=== PATIENT | female | born 1965 | race Caucasian/White ===

== ENCOUNTER 2023-03-09 02:01 | Inpatient (IN) | payer MEDICAID ==
[~2023-03-09] VITALS: Ht 165.1 cm; Wt 119.6 kg
[2023-03-09 02:40] LABS: Basophils # (auto) 0.1 10 ^3/uL (0-0.2); Basophils % (auto) 1.2 % (0.0-2.0); Eosinophils # (auto) 0.3 10 ^3/uL (0-0.8); Eosinophils % (auto) 2.9 % (0.0-7.0); Hematocrit 40.4 % (36.0-46.0); Hemoglobin 13.6 g/dL (12.2-16.2); Lymphocytes # (auto) 1.9 10 ^3/uL (0.4-5.4); Lymphocytes % (auto) 19.4 % (10.0-50.0); Mean Corpuscular Hemoglobin 30.5 pg (28.0-32.0); Mean Corpuscular Hgb Conc. 33.7 g/dL (32.0-36.0); Mean Corpuscular Volume 90.3 fL (80.0-100.0); Monocytes # (auto) 0.9 10 ^3/uL (0-1.3); Monocytes % (auto) 9.8 % (0.0-12.0); Neutrophils # (auto) 6.5 10 ^3/uL (1.6-8.6); Neutrophils % (auto) 66.7 % (37.0-80.0); Nucleated Red Blood Cells % 0.1 %; Red Blood Cells 4.47 10^6/uL (4.0-5.20); Red Cell Distribution Width 13.5 % (11.8-14.3); White Blood Cell 9.7 10^3/uL (4.4-10.8)
[2023-03-09 03:28] LABS: BUN/Creatinine Ratio 17.8 (10.0-20.0); Bilirubin, Total 0.3 mg/dL (0.2-1.0); Calcium 9.1 mg/dL (8.5-10.1); Potassium 3.2 mmol/L (3.5-5.1)
[2023-03-09] MEDS ORDERED: LACTATED RINGER'S 2,000 ML IV ONE (04:30)
[2023-03-09] MEDS ORDERED: InsuLIN REG 1unit/0.01ml Soln (100units/ml) IV ONE (04:30)
[2023-03-09] MEDS ORDERED: POTASSIUM EFFERVESENT TAB 25 MEQ PO ONE (04:30)
[2023-03-09 04:50] LABS: Magnesium 1.7 mg/dL (1.6-2.6)
[2023-03-09] MEDS ORDERED: LACTATED RINGER'S 1,000 ML IV ONE (05:00)
[2023-03-09] MEDS ORDERED: SODIUM CHLORIDE 0.9% 1,000 ML IV ONE (06:00)
[2023-03-09 06:38] LABS: Urine Bacteria MANY /hpf (None Seen); Urine Blood 2+ /uL (Negative); Urine Specific Gravity 1.023 (1.001-1.035); Urine WBC 2051 /hpf (0 - 5)
[2023-03-09] MEDS ORDERED: MORPHINE SULFATE INJ 2 MG/ml SYRG IV PRN (08:30)
[2023-03-09] MEDS ORDERED: DOCUSATE SOD 100 MG CAP PO PRN (08:30)
[2023-03-09] MEDS ORDERED: ONDANSETRON HCL 4 MG/2 ML VIAL IV PRN (08:30)
[2023-03-09] MEDS ORDERED: NITROGLYCERIN 0.4 MG SL TAB SL PRN (08:30)
[2023-03-09] MEDS ORDERED: TEMAZEPAM 15 MG CAP PO PRN (08:30)
[2023-03-09] MEDS ORDERED: DEXTROSE (50%) 50ML SYRG IV PRN (08:30)
[2023-03-09] MEDS ORDERED: ACETAMINOPHEN 325 MG TAB PO PRN (08:30)
[2023-03-09] MEDS: PIPERACILLIN-TAZOB 3.375GM 100 ML IV SCH ×3 (09:39→22:21)
[2023-03-09] MEDS: MULTIPLE VITAMIN TAB PO SCH (09:40)
[2023-03-09] MEDS: ENOXAPARIN SOD 40 MG/0.4 ML SYRINGE SC SCH (09:40)
[2023-03-09] MEDS: ASCORBIC ACID 500 MG TAB PO SCH ×2 (09:40→22:09)
[2023-03-09] MEDS: FAMOTIDINE 20 MG TAB PO SCH (09:40)
[2023-03-09] MEDS: ZINC SULFATE 220mg CAP or TAB PO SCH (09:40)
[2023-03-09] MEDS: ACCU-CHEK COMFORT CURVE STRIP VI SCH ×3 (11:22→22:09)
[2023-03-09] MEDS: InsuLIN REG 1unit/0.01ml Soln (100units/ml) SC SCH ×3 (11:29→22:12)
[2023-03-10] MEDS: PIPERACILLIN-TAZOB 3.375GM 100 ML IV SCH ×3 (05:33→22:54)
[2023-03-10 06:23] LABS: Potassium 3.5 mmol/L (3.5-5.1)
[2023-03-10 06:26] LABS: Basophils # (auto) 0.1 10 ^3/uL (0-0.2); Eosinophils # (auto) 0.4 10 ^3/uL (0-0.8); Eosinophils % (auto) 4.4 % (0.0-7.0); Hematocrit 39.3 % (36.0-46.0); Hemoglobin 13.1 g/dL (12.2-16.2); Lymphocytes # (auto) 2.5 10 ^3/uL (0.4-5.4); Mean Corpuscular Hemoglobin 29.8 pg (28.0-32.0); Mean Corpuscular Hgb Conc. 33.4 g/dL (32.0-36.0); Mean Corpuscular Volume 89.1 fL (80.0-100.0); Monocytes # (auto) 0.8 10 ^3/uL (0-1.3); Monocytes % (auto) 9.4 % (0.0-12.0); Neutrophils # (auto) 4.6 10 ^3/uL (1.6-8.6); Neutrophils % (auto) 55.2 % (37.0-80.0); Nucleated Red Blood Cells % 0.1 %; Red Blood Cells 4.41 10^6/uL (4.0-5.20); Red Cell Distribution Width 13.4 % (11.8-14.3); White Blood Cell 8.3 10^3/uL (4.4-10.8)
[2023-03-10 06:34] LABS: Albumin 2.4 g/dL (3.4-5.0); BUN/Creatinine Ratio 16.8 (10.0-20.0); Bilirubin, Total 0.2 mg/dL (0.2-1.0); Calcium 8.1 mg/dL (8.5-10.1)
[2023-03-10] MEDS: ACCU-CHEK COMFORT CURVE STRIP VI SCH ×4 (06:37→22:50)
[2023-03-10] MEDS: InsuLIN REG 1unit/0.01ml Soln (100units/ml) SC SCH ×4 (06:42→22:00)
[2023-03-10] MEDS: ENOXAPARIN SOD 40 MG/0.4 ML SYRINGE SC SCH (10:00)
[2023-03-10] MEDS: MULTIPLE VITAMIN TAB PO SCH (10:17)
[2023-03-10] MEDS: FAMOTIDINE 20 MG TAB PO SCH (10:17)
[2023-03-10] MEDS: ASCORBIC ACID 500 MG TAB PO SCH ×2 (10:18→22:54)
[2023-03-10] MEDS: ZINC SULFATE 220mg CAP or TAB PO SCH (10:18)
[2023-03-10] MEDS: INSULIN LANTUS (GLARGINE) 1 /0.01ml (100units/ml) SC SCH ×2 (11:14→22:00)
[2023-03-10] MEDS: HYDROcodone-ACET 5/325MG TAB PO PRN ×2 (13:16→20:48)
[2023-03-10] MEDS: metFORMIN HYDROCHLORIDE 500 MG TAB PO SCH (18:25)
[2023-03-11] MEDS: InsuLIN REG 1unit/0.01ml Soln (100units/ml) SC SCH ×4 (06:42→21:29)
[2023-03-11] MEDS: INSULIN LANTUS (GLARGINE) 1 /0.01ml (100units/ml) SC SCH ×2 (06:46→21:30)
[2023-03-11] MEDS: ACCU-CHEK COMFORT CURVE STRIP VI SCH ×4 (06:46→21:19)
[2023-03-11] MEDS: PIPERACILLIN-TAZOB 3.375GM 100 ML IV SCH ×2 (06:49→17:23)
[2023-03-11 09:00] VITALS: BP 111/51
[2023-03-11] MEDS: MULTIPLE VITAMIN TAB PO SCH (09:08)
[2023-03-11] MEDS: ASCORBIC ACID 500 MG TAB PO SCH ×2 (09:08→21:19)
[2023-03-11] MEDS: ENOXAPARIN SOD 40 MG/0.4 ML SYRINGE SC SCH (09:08)
[2023-03-11] MEDS: metFORMIN HYDROCHLORIDE 500 MG TAB PO SCH ×2 (09:09→17:25)
[2023-03-11] MEDS: FAMOTIDINE 20 MG TAB PO SCH (09:09)
[2023-03-11] MEDS: ZINC SULFATE 220mg CAP or TAB PO SCH (09:09)
[2023-03-11 12:34] LABS: Albumin 2.3 g/dL (3.4-5.0); BUN/Creatinine Ratio 13.9 (10.0-20.0); Potassium 3.6 mmol/L (3.5-5.1)
[2023-03-11 12:42] LABS: Bilirubin, Total 0.2 mg/dL (0.2-1.0); Total Protein 6.6 g/dL (6.4-8.2)
[2023-03-11 17:00] VITALS: BP 124/60
[2023-03-11] MEDS: glipiZIDE 5 MG TAB PO SCH (17:26)
[2023-03-11] MEDS: HYDROcodone-ACET 5/325MG TAB PO PRN ×2 (17:30→22:04)
[2023-03-11 20:00] VITALS: BP 148/83
[2023-03-12 00:11] VITALS: BP 148/83
[2023-03-12] MEDS: PIPERACILLIN-TAZOB 3.375GM 100 ML IV SCH ×3 (00:36→17:18)
[2023-03-12] MEDS: ACCU-CHEK COMFORT CURVE STRIP VI SCH ×4 (05:59→21:19)
[2023-03-12] MEDS: glipiZIDE 5 MG TAB PO SCH ×2 (06:00→17:19)
[2023-03-12] MEDS: INSULIN LANTUS (GLARGINE) 1 /0.01ml (100units/ml) SC SCH ×2 (06:03→21:19)
[2023-03-12] MEDS: InsuLIN REG 1unit/0.01ml Soln (100units/ml) SC SCH ×4 (06:03→21:18)
[2023-03-12 09:00] VITALS: BP 125/75
[2023-03-12] MEDS: metFORMIN HYDROCHLORIDE 500 MG TAB PO SCH ×2 (09:04→17:18)
[2023-03-12] MEDS: ZINC SULFATE 220mg CAP or TAB PO SCH (09:05)
[2023-03-12] MEDS: MULTIPLE VITAMIN TAB PO SCH (09:05)
[2023-03-12] MEDS: ENOXAPARIN SOD 40 MG/0.4 ML SYRINGE SC SCH (09:05)
[2023-03-12] MEDS: ASCORBIC ACID 500 MG TAB PO SCH ×2 (09:05→21:15)
[2023-03-12] MEDS: FAMOTIDINE 20 MG TAB PO SCH (09:05)
[2023-03-12] MEDS ORDERED: GLIP5TAB12 PO (12:19)
[2023-03-12] MEDS ORDERED: METF-929 PO (12:19)
[2023-03-12] MEDS ORDERED: BLOO1KIT60 XX (12:19)
[2023-03-12] MEDS ORDERED: LANC-347 XX (12:19)
[2023-03-12] MEDS ORDERED: INSU0.5M41 XX (12:19)
[2023-03-12] MEDS ORDERED: INSLANTI SC (12:19)
[2023-03-12] MEDS: HYDROcodone-ACET 5/325MG TAB PO PRN ×2 (14:56→20:23)
[2023-03-12] MEDS: FUROSEMIDE 40 MG/4 ML VIAL IV SCH (15:02)
[2023-03-12 16:30] VITALS: BP 133/80
[2023-03-12 22:00] VITALS: BP 124/73
[2023-03-13] MEDS: PIPERACILLIN-TAZOB 3.375GM 100 ML IV SCH ×3 (00:40→17:12)
[2023-03-13 05:00] VITALS: BP 105/54
[2023-03-13] MEDS: glipiZIDE 5 MG TAB PO SCH ×2 (06:22→17:16)
[2023-03-13 06:48] LABS: Basophils # (auto) 0 10 ^3/uL (0-0.2); Basophils % (auto) 0.6 % (0.0-2.0); Eosinophils # (auto) 0.3 10 ^3/uL (0-0.8); Eosinophils % (auto) 4.1 % (0.0-7.0); Hematocrit 39.5 % (36.0-46.0); Lymphocytes # (auto) 2.9 10 ^3/uL (0.4-5.4); Lymphocytes % (auto) 37.6 % (10.0-50.0); Mean Corpuscular Hemoglobin 29.5 pg (28.0-32.0); Mean Corpuscular Volume 89.5 fL (80.0-100.0); Monocytes # (auto) 0.7 10 ^3/uL (0-1.3); Monocytes % (auto) 8.9 % (0.0-12.0); Neutrophils # (auto) 3.8 10 ^3/uL (1.6-8.6); Neutrophils % (auto) 48.8 % (37.0-80.0); Nucleated Red Blood Cells % 0.1 %; Potassium 3.5 mmol/L (3.5-5.1); Red Blood Cells 4.42 10^6/uL (4.0-5.20); Red Cell Distribution Width 13.8 % (11.8-14.3); White Blood Cell 7.8 10^3/uL (4.4-10.8)
[2023-03-13 06:55] LABS: Albumin 2.3 g/dL (3.4-5.0); BUN/Creatinine Ratio 13.2 (10.0-20.0); Bilirubin, Total 0.2 mg/dL (0.2-1.0); Calcium 7.9 mg/dL (8.5-10.1); Total Protein 6.3 g/dL (6.4-8.2)
[2023-03-13] MEDS: INSULIN LANTUS (GLARGINE) 1 /0.01ml (100units/ml) SC SCH ×2 (07:00→21:35)
[2023-03-13] MEDS: ACCU-CHEK COMFORT CURVE STRIP VI SCH ×5 (07:00→21:33)
[2023-03-13] MEDS: InsuLIN REG 1unit/0.01ml Soln (100units/ml) SC SCH ×5 (07:00→21:36)
[2023-03-13 08:00] VITALS: BP 138/68
[2023-03-13 09:13] VITALS: BP 138/68
[2023-03-13] MEDS: ZINC SULFATE 220mg CAP or TAB PO SCH (10:27)
[2023-03-13] MEDS: metFORMIN HYDROCHLORIDE 500 MG TAB PO SCH ×2 (10:27→17:15)
[2023-03-13] MEDS: MULTIPLE VITAMIN TAB PO SCH (10:28)
[2023-03-13] MEDS: FUROSEMIDE 40 MG/4 ML VIAL IV SCH (10:28)
[2023-03-13] MEDS: FAMOTIDINE 20 MG TAB PO SCH (10:29)
[2023-03-13] MEDS: ASCORBIC ACID 500 MG TAB PO SCH ×2 (10:29→21:31)
[2023-03-13] MEDS: ENOXAPARIN SOD 40 MG/0.4 ML SYRINGE SC SCH (10:29)
[2023-03-13] MEDS: HYDROcodone-ACET 5/325MG TAB PO PRN ×2 (10:30→21:43)
[2023-03-13 12:30] VITALS: BP 143/74
[2023-03-13 16:44] VITALS: BP 132/59
[2023-03-13 22:00] VITALS: BP 124/58
[2023-03-14] MEDS: PIPERACILLIN-TAZOB 3.375GM 100 ML IV SCH ×3 (00:46→17:00)
[2023-03-14 05:00] VITALS: BP 116/52
[2023-03-14] MEDS: INSULIN LANTUS (GLARGINE) 1 /0.01ml (100units/ml) SC SCH (06:29)
[2023-03-14] MEDS: glipiZIDE 5 MG TAB PO SCH (06:29)
[2023-03-14] MEDS: ACCU-CHEK COMFORT CURVE STRIP VI SCH ×3 (06:29→17:00)
[2023-03-14] MEDS: InsuLIN REG 1unit/0.01ml Soln (100units/ml) SC SCH ×3 (06:29→17:00)
[2023-03-14 08:00] VITALS: BP 144/79
[2023-03-14 08:19] VITALS: BP 144/79
[2023-03-14] MEDS: MULTIPLE VITAMIN TAB PO SCH (09:15)
[2023-03-14] MEDS: ASCORBIC ACID 500 MG TAB PO SCH (09:16)
[2023-03-14] MEDS: FAMOTIDINE 20 MG TAB PO SCH (09:16)
[2023-03-14] MEDS: metFORMIN HYDROCHLORIDE 500 MG TAB PO SCH (09:16)
[2023-03-14] MEDS: ENOXAPARIN SOD 40 MG/0.4 ML SYRINGE SC SCH (09:16)
[2023-03-14] MEDS: ZINC SULFATE 220mg CAP or TAB PO SCH (09:16)
[2023-03-14] MEDS: FUROSEMIDE 40 MG/4 ML VIAL IV SCH (09:17)
[2023-03-14 10:39] LABS: Calcium 8.5 mg/dL (8.5-10.1); Potassium 3.9 mmol/L (3.5-5.1)
[2023-03-14 12:51] VITALS: BP 154/78
[2023-03-14 16:57] VITALS: BP 142/89
== END 2023-03-14 18:06 | disposition home health service (06) ==
LOC: ER 02:01 → EDBD 02:01 → TELE 08:31 → TELE-WESTW 03-11 04:44
PROVIDERS: ADMIT Nurse Practitioner; ATTEND Nurse Practitioner
DX: K80.20 Calculus of gallbladder without cholecystitis without obstruction (principal); K85.90 Acute pancreatitis without necrosis or infection, unspecified; E11.10 Type 2 diabetes mellitus with ketoacidosis without coma; E11.22 Type 2 diabetes mellitus with diabetic chronic kidney disease; N30.00 Acute cystitis without hematuria; E88.09 Other disorders of plasma-protein metabolism, not elsewhere classified; K76.0 Fatty (change of) liver, not elsewhere classified; E87.6 Hypokalemia; E11.65 Type 2 diabetes mellitus with hyperglycemia; E66.01 Morbid (severe) obesity due to excess calories; I12.9 Hypertensive chronic kidney disease with stage 1 through stage 4 chronic kidney disease, or unspecified chronic kidney disease; E87.1 Hypo-osmolality and hyponatremia; N18.9 Chronic kidney disease, unspecified; E87.8 Other disorders of electrolyte and fluid balance, not elsewhere classified; Z68.41 Body mass index [BMI] 40.0-44.9, adult; Z91.199 Patient's noncompliance with other medical treatment and regimen due to unspecified reason; Z87.891 Personal history of nicotine dependence
CPT/HCPCS: 36415; 71045; 74176; 74181; 76705; 80048; 80053; 80061; 81001; 82010; 82150; 82962; 83036; 83690; 83735; 83880; 84484; 85025; 87086; 93005; 93306; 93970; 96361; 96374; G0378; J1815; J2543